=== PATIENT | male | born 1955 | race Caucasian/White ===

== ENCOUNTER 2024-12-25 10:35 | Outpatient (CLI) | payer MEDICARE, BC ==
[2024-12-24 11:50] LABS: CREATININE 1.19 MG/DL (0.60-1.10); TOTAL CARBON DIOXIDE 28.7 MMOL/L (24-32); eGFR 60 ML/MIN
--- NOTE | 2024-12-25 14:18 | RADIOLOGY REPORT ---
History: AORTIC ANEURYSM Comparison: None TECHNIQUE: Volumetric data acquisition of chest was obtained following intravenous administration of 100 ml omni 350 contrast without any reported adverse effects. Arterial phase imaging was performed. Axial images were obtained and additional sagittal and coronal images were reformatted. 3D/MIP images were performed and reviewed for reporting. Radiation dose Information: CT Dose: CTDI volume is 20 mGy. Dose-length product is 709 mGy*cm Findings: Vascular: Aortic measurements: Sinus of valsalva 41 mm, ST junction 29 mm, ascending aorta 41 mm, d escending aorta 25 mm, aortic hiatus 24 mm. Ascending aortic aneurysm measuring up to 41 mm. Visualized supra-aortic arteries are patent without a focal stenosis or aneurysm. Chest: Pulmonary Arteries: There are no filling defects within main pulmonary arteries. There is norm al dimensional of main PA. Lungs: There is no peripheral pulmonary infarction, consolidation, pleural effusion, or right heart s train. There is no pneumothorax or pneumomediastinum. Atelectasis and scarring in the lung bases. Lymph Nodes: There is no significant intrathoracic or axillary lymphadenopathy on CT size criteria. Lower Neck: Visualized portions of the thyroid gland are unremarkable. Mediastinum: Heart size is normal. There is no pericardial effusion. Musculoskeletal: No aggressive focal bony lesions, acute fractures or dislocation. Upper Abdomen: Unremarkable IMPRESSION: 1. Ascending aortic aneurysm measuring up to 41 mm. Dilated aortic root. Atelectasis scarring in the lung bases. 2. All CT scans at this medical facility are performed using dose modulation techniques as appropriat e to a performed exam including the following: Automated exposure control was utilized; Adjustment of the MA And/or KV according to patient size; And use of iterative reconstruction technique. HS:Y
== END 2024-12-25 23:59 | disposition home or self-care (01) ==
LOC: RAD 10:35
PROVIDERS: ATTEND Internal Medicine Interventional Cardiology
DX: I71.21 Aneurysm of the ascending aorta, without rupture (principal); I34.0 Nonrheumatic mitral (valve) insufficiency; I10 Essential (primary) hypertension; I70.8 Atherosclerosis of other arteries; I70.0 Atherosclerosis of aorta
CPT/HCPCS: 36415; 71275; 80048; Q9967